=== PATIENT | female | born 1980 | race Caucasian/White ===

== ENCOUNTER 2021-05-21 14:20 | Emergency (ER) | payer SELFPAY ==
[~2021-05-21] VITALS: Ht 167.6 cm; Wt 52.2 kg
--- NOTE | 2021-05-21 14:37 | NUR ---
The patient is [id number], from drug rehab, c/o generalized rash after taking robaxin [id number], from drug rehab, c/o generalized rash after taking robaxin. The patient is alert and orieneted x4. C/O throat pain. Denies SOB. Respiration regular and unlabored. Will continue to monitor the patient.
--- NOTE | 2021-05-21 14:38 | NUR ---
cameron, from drug rehab, c/o generalized rash after taking robaxin, epipen given on scene. On room air, breathing evenly and unlabored. Connected to the monitor and pulse ox. Kept comfortable, will continue to monitor accordingly.
[2021-05-21] MEDS ORDERED: diphenhydrAMINE HCL 50 MG CAPSULE ONE (14:55)
[2021-05-21] MEDS ORDERED: predniSONE 10 MG TABLET ONE (14:55)
[2021-05-21] MEDS ORDERED: HALOPERIDOL LACTATE INJ 5 MG/ML VIAL IM ONE (15:00)
[2021-05-21] MEDS ORDERED: predniSONE 20 MG TABLET PO ONE (15:00)
[2021-05-21] MEDS ORDERED: predniSONE 10 MG TABLET PO ONE (15:00)
[2021-05-21] MEDS ORDERED: diphenhydrAMINE HCL 50 MG CAPSULE PO ONE (15:00)
[2021-05-21] MEDS ORDERED: HALOPERIDOL LACTATE INJ 5 MG/ML VIAL ONE (15:03)
[2021-05-21] MEDS ORDERED: EPIN0.3P3 IJ (17:15)
--- NOTE | 2021-05-21 17:21 | NUR ---
ARASH [phone] CALLED PT WILL BE PICKED UP LATER [facility]. WILL CALL BACK WITH AN ETA.
[2021-05-21 17:57] VITALS: BP 118/66
--- NOTE | 2021-05-21 17:58 | NUR ---
patient discharged in no distress, picked up by patient representative from [facility].
== END 2021-05-21 17:57 ==
LOC: ER 14:36
DX: R07.89 Other chest pain (principal); R07.0 Pain in throat; T42.8X5A Adverse effect of antiparkinsonism drugs and other central muscle-tone depressants, initial encounter; F32.9 Major depressive disorder, single episode, unspecified; F41.9 Anxiety disorder, unspecified; Z88.8 Allergy status to other drugs, medicaments and biological substances; Z88.6 Allergy status to analgesic agent; Y92.89 Other specified places as the place of occurrence of the external cause
CPT/HCPCS: 93005; 96372; 99283; J1630; J7512; Q0163